=== PATIENT | female | born 2000 | race Caucasian/White ===

== ENCOUNTER → 2018-03-10 | Outpatient (CLI) | payer OTHER ==
[~2018-03-10] MED LIST: CEPH500C24 PO; ONDA4TAB97 PO; OXYC-865 PO; PREN-127 PO
[2018-03-10 11:55] LABS: PLATELET COUNT, AUTOMATED 272 K/uL (150-450)
== END ==
LOC: LAB 10:13
PROVIDERS: ATTEND Obstetrics & Gynecology
DX: Z34.91 Encounter for supervision of normal pregnancy, unspecified, first trimester (principal)
CPT/HCPCS: 36415; 81001; 85025; 86592; 86703; 86762; 86787; 86850; 86900; 86901; 87088; 87340

== ENCOUNTER → 2018-03-12 | Outpatient (CLI) | payer OTHER ==
[~2018-03-12] MED LIST changes: +RHO(150015 IM
== END ==
LOC: LAB 12:20
PROVIDERS: ATTEND Obstetrics & Gynecology
DX: O20.0 Threatened abortion (principal)
CPT/HCPCS: 36415; 84702

== ENCOUNTER → 2018-03-14 | Outpatient (CLI) | payer OTHER | LOC: LAB 12:04 | PROVIDERS: ATTEND Obstetrics & Gynecology | DX: O20.0 Threatened abortion (principal) | CPT/HCPCS: 36415; 84702 ==

== ENCOUNTER → 2018-03-26 | Outpatient (CLI) | payer OTHER | LOC: LAB 09:47 | PROVIDERS: ATTEND Obstetrics & Gynecology | DX: O03.9 Complete or unspecified spontaneous abortion without complication (principal) | CPT/HCPCS: 36415; 84702 ==

== ENCOUNTER → 2018-04-11 | Outpatient (CLI) | payer OTHER ==
[~2018-04-11] MED LIST changes: +ONDA8TAB91 PO
[2018-04-11 11:44] LABS: PLATELET COUNT, AUTOMATED 263 K/uL (150-450)
== END ==
LOC: LAB 11:25
PROVIDERS: ATTEND Nurse Practitioner Primary Care
DX: R11.2 Nausea with vomiting, unspecified (principal)
CPT/HCPCS: 36415; 82040; 82247; 82310; 82374; 82435; 82565; 82947; 83516; 84075; 84132; 84155; 84295; 84450; 84460; 84520; 84702; 85025

== ENCOUNTER → 2018-05-01 | Outpatient (REF) ==
[2018-05-01 11:48] LABS: LDL CHOLESTEROL 106 mg/dl
== END ==
DX: Z02.9 Encounter for administrative examinations, unspecified (principal)

== ENCOUNTER 2018-07-10 11:16 | Emergency (ER) | payer OTHER ==
--- NOTE | 2018-07-10 12:07 | ER Report ---
History and Physical Time Seen By MD: 11:56 Hx. of Stated Complaint: pt states has a lot of anxiety and aches and pain. Had a miscarriage a in Feb , had a suicide attempt sometime later. Denies suicidal ideation at this time HPI/ROS CHIEF COMPLAINT: Anxiety HISTORY OF PRESENT ILLNESS: 18-year-old female patient presents to emergency room with complaint of anxiety. Patient states that she has been having a hard time with anxiety for the past several months. She states that really this is started after she had a miscarriage. Patient states that she is not sleeping well, she's not eating well, she is having hard time focusing at work. She states she is struggling with getting things done at home. She states that she has an episode where she was suicidal and attempted to drown herself in the bathtub. She states that was unsuccessful. She states that she has not talked with this with her until today. She also talked with her mother about this today who recommended she come in for evaluation. Patient states that she is not suicidal at this time. Patient states that she has been tearful. She states that she struggles with discussing how she's feeling with other people, she does not want to be the center of attention. She states that she has this back and abdominal pain that starts in the back and radiates around to her stomach. She states this only occurs when she is having some anxiety. REVIEW OF SYSTEMS: Respiratory: No cough, no dyspnea. Cardiovascular: No chest pain, no palpitations. Gastrointestinal: As noted above Musculoskeletal: No back pain. Allergies: Coded Allergies: No Known Drug Allergies (Unverified , 07/10/18) Home Meds Active Scripts Hydroxyzine Hcl (HYDROXYZINE HCL) 25 Mg Tablet, 25 MG PO Q6H PRN for ANXIETY, #30 TAB Prov:KALI JOHNSON [facility] 07/10/18 Sertraline Hcl (ZOLOFT) 50 Mg Tablet, 1 TAB PO QDAY, #30 TAB Prov:KALI JOHNSON [facility] 07/10/18 Reported Medications Vits W-Ca,Fe,Fa(<1MG) ( VITAMINS) 1 Each Tablet, 1 EACH PO DAILY, TAB 03/10/18 Discontinued Scripts Ondansetron Hcl (ZOFRAN) 8 Mg Tablet, 1 TAB PO Q12H PRN for NAUSEA/VOMITING, #8 TAB 0 Refills Prov:BRENDA CUELLAR DNP, SERVICE ASSISTANT-BC 04/11/18 Past Medical/Surgical History Patient denies any pertinent medical or surgical history. Reviewed Nurses Notes: Yes Smoking Status: Never Smoker Hx Substance Use Disorder: No Hx Alcohol Use: No Constitutional Vital Sign - Last 24 Hours 07/10/18 07/10/18 11:21 14:30 Temp 98.4 Pulse 92 Resp 20 B/P (MAP) 136/88 101/66 (78) Pulse Ox 93 O2 Delivery Room Air Physical Exam General Appearance: The patient is alert, has no immediate need for airway protection and no current signs of toxicity. Respiratory: Chest is non tender, lungs are clear to auscultation. Cardiac: regular rate and rhythm Gastrointestinal: Abdomen is soft and non tender, no masses, bowel sounds normal. Musculoskeletal: Neck: Neck is supple and non tender. Extremities have full range of motion and are non tender. Skin: No rashes or lesions. Psych: Patient is alert and oriented 4, she is able to maintain eye contact. Patient is tearful throughout interview. DIFFERENTIAL DIAGNOSIS: After history and physical exam differential diagnosis was considered for depression, anxiety. Medical Decision Making Data Points Result Diagram: 07/10/18 1342 07/10/18 1255 Laboratory Hematology Test 07/10/18 11:38 07/10/18 12:55 07/10/18 13:42 Urine Color Yellow Urine Clarity Slightly-cloudy Urine pH 7.0 pH (4.8-9.5) Urine Specific [place] 1.010 Urine Protein Negative mg/dL (NEGATIVE) Urine Glucose (UA) Negative mg/dL (NEGATIVE) Urine Ketones Negative mg/dL (NEGATIVE) Urine Blood Negative (NEGATIVE) Urine Nitrite Negative (NEGATIVE) Urine Bilirubin Negative (NEGATIVE) Urine Urobilinogen Negative mg/dL (0.2-1.9) Urine Leukocyte Esterase Negative (NEGATIVE) Urine RBC None /HPF (0-2/HPF) Urine WBC <1 /HPF (0-5/HPF) Urine Squamous Epithelial Cells Many /LPF (</=FEW) Urine Bacteria Negative /HPF (NONE-FEW) Urine Mucus None /HPF (NONE-FEW) Urine HCG, Qualitative Negative (NEGATIVE) Urine Opiates Screen Negative Urine Barbiturates Screen Negative Ur Tricyclic Antidepressants Screen Negative Urine Phencyclidine Screen Negative Urine Amphetamines Screen Negative Urine Benzodiazepines Screen Negative Urine Cocaine Screen Negative Urine Cannabinoids Screen Negative Sodium Level 140 mmol/L (137-145) Potassium Level 3.7 mmol/L (3.5-5.0) Chloride Level 105 mmol/L (98-107) Carbon Dioxide Level 22 mmol/L (22-31) Blood Urea Nitrogen 8 mg/dl (7-18) Creatinine 0.60 mg/dl (0.52-1.04) Glomerular Filtration Rate Calc > 60.0 Random Glucose 81 mg/dl (75-110) Calcium Level 9.8 mg/dl (8.4-10.2) Magnesium Level 2.0 mg/dl (1.7-2.2) Total Bilirubin 0.7 mg/dl (0.2-1.3) Aspartate Amino Transf (AST/SGOT) 23 U/L (0-35) Alanine Aminotransferase (ALT/SGPT) 24 U/L (0-56) Alkaline Phosphatase 72 U/L (0-126) Total Protein 8.0 g/dl (6.3-8.2) Albumin 5.0 g/dl (3.5-5.0) Thyroid Stimulating Hormone (TSH) 2.53 uIU/ml (0.46-4.68) Salicylates Level < 10 mg/L Salicylate Last Dose Date Unk Acetaminophen Level < 10 ug/ml Serum Alcohol < 10 mg/dl Red Blood Count 5.40 M/uL (4.17-5.56) Mean Corpuscular Volume 89.5 fL (80.0-96.0) Mean Corpuscular Hemoglobin 31.3 pg (26.0-33.0) Mean Corpuscular Hemoglobin Concent 34.9 g/dL (32.0-36.0) Red Cell Distribution Width 12.5 % (11.5-14.5) Mean Platelet Volume 8.1 fL (7.2-11.1) Neutrophils (%) (Auto) 68.3 % (39.4-72.5) Lymphocytes (%) (Auto) 24.7 % (17.6-49.6) Monocytes (%) (Auto) 5.7 % (4.1-12.4) Eosinophils (%) (Auto) 0.6 % (0.4-6.7) Basophils (%) (Auto) 0.7 % (0.3-1.4) Nucleated RBC Relative Count (auto) 0.1 /100WBC Neutrophils # (Auto) 6.2 K/uL (2.0-7.4) Lymphocytes # (Auto) 2.2 K/uL (1.3-3.6) Monocytes # (Auto) 0.5 K/uL (0.3-1.0) Eosinophils # (Auto) 0.1 K/uL (0.0-0.5) Basophils # (Auto) 0.1 K/uL (0.0-0.1) Nucleated RBC Absolute Count (auto) 0.01 K/uL Chemistry Test 07/10/18 11:38 07/10/18 12:55 07/10/18 13:42 Urine Color Yellow Urine Clarity Slightly-cloudy Urine pH 7.0 pH (4.8-9.5) Urine Specific [place] 1.010 Urine Protein Negative mg/dL (NEGATIVE) Urine Glucose (UA) Negative mg/dL (NEGATIVE) Urine Ketones Negative mg/dL (NEGATIVE) Urine Blood Negative (NEGATIVE) Urine Nitrite Negative (NEGATIVE) Urine Bilirubin Negative (NEGATIVE) Urine Urobilinogen Negative mg/dL (0.2-1.9) Urine Leukocyte Esterase Negative (NEGATIVE) Urine RBC None /HPF (0-2/HPF) Urine WBC <1 /HPF (0-5/HPF) Urine Squamous Epithelial Cells Many /LPF (</=FEW) Urine Bacteria Negative /HPF (NONE-FEW) Urine Mucus None /HPF (NONE-FEW) Urine HCG, Qualitative Negative (NEGATIVE) Urine Opiates Screen Negative Urine Barbiturates Screen Negative Ur Tricyclic Antidepressants Screen Negative Urine Phencyclidine Screen Negative Urine Amphetamines Screen Negative Urine Benzodiazepines Screen Negative Urine Cocaine Screen Negative Urine Cannabinoids Screen Negative Glomerular Filtration Rate Calc > 60.0 Calcium Level 9.8 mg/dl (8.4-10.2) Magnesium Level 2.0 mg/dl (1.7-2.2) Total Bilirubin 0.7 mg/dl (0.2-1.3) Aspartate Amino Transf (AST/SGOT) 23 U/L (0-35) Alanine Aminotransferase (ALT/SGPT) 24 U/L (0-56) Alkaline Phosphatase 72 U/L (0-126) Total Protein 8.0 g/dl (6.3-8.2) Albumin 5.0 g/dl (3.5-5.0) Thyroid Stimulating Hormone (TSH) 2.53 uIU/ml (0.46-4.68) Salicylates Level < 10 mg/L Salicylate Last Dose Date Unk Acetaminophen Level < 10 ug/ml Serum Alcohol < 10 mg/dl White Blood Count 9.0 k/uL (4.5-11.0) Red Blood Count 5.40 M/uL (4.17-5.56) Hemoglobin 16.9 g/dL (12.0-16.0) Hematocrit 48.4 % (34.0-47.0) Mean Corpuscular Volume 89.5 fL (80.0-96.0) Mean Corpuscular Hemoglobin 31.3 pg (26.0-33.0) Mean Corpuscular Hemoglobin Concent 34.9 g/dL (32.0-36.0) Red Cell Distribution Width 12.5 % (11.5-14.5) Platelet Count 248 K/uL (150-450) Mean Platelet Volume 8.1 fL (7.2-11.1) Neutrophils (%) (Auto) 68.3 % (39.4-72.5) Lymphocytes (%) (Auto) 24.7 % (17.6-49.6) Monocytes (%) (Auto) 5.7 % (4.1-12.4) Eosinophils (%) (Auto) 0.6 % (0.4-6.7) Basophils (%) (Auto) 0.7 % (0.3-1.4) Nucleated RBC Relative Count (auto) 0.1 /100WBC Neutrophils # (Auto) 6.2 K/uL (2.0-7.4) Lymphocytes # (Auto) 2.2 K/uL (1.3-3.6) Monocytes # (Auto) 0.5 K/uL (0.3-1.0) Eosinophils # (Auto) 0.1 K/uL (0.0-0.5) Basophils # (Auto) 0.1 K/uL (0.0-0.1) Nucleated RBC Absolute Count (auto) 0.01 K/uL Toxicology Test 07/10/18 11:38 07/10/18 12:55 Urine Opiates Screen Negative Urine Barbiturates Screen Negative Ur Tricyclic Antidepressants Screen Negative Urine Phencyclidine Screen Negative Urine Amphetamines Screen Negative Urine Benzodiazepines Screen Negative Urine Cocaine Screen Negative Urine Cannabinoids Screen Negative Salicylates Level < 10 mg/L Salicylate Last Dose Date Unk Acetaminophen Level < 10 ug/ml Serum Alcohol < 10 mg/dl Urinalysis Test 07/10/18 11:38 Urine Color Yellow Urine Clarity Slightly-cloudy Urine pH 7.0 pH (4.8-9.5) Urine Specific [place] 1.010 Urine Protein Negative mg/dL (NEGATIVE) Urine Glucose (UA) Negative mg/dL (NEGATIVE) Urine Ketones Negative mg/dL (NEGATIVE) Urine Blood Negative (NEGATIVE) Urine Nitrite Negative (NEGATIVE) Urine Bilirubin Negative (NEGATIVE) Urine Urobilinogen Negative mg/dL (0.2-1.9) Urine Leukocyte Esterase Negative (NEGATIVE) Urine RBC None /HPF (0-2/HPF) Urine WBC <1 /HPF (0-5/HPF) Urine Squamous Epithelial Cells Many /LPF (</=FEW) Urine Bacteria Negative /HPF (NONE-FEW) Urine Mucus None /HPF (NONE-FEW) Urine HCG, Qualitative Negative (NEGATIVE) ED Course/Re-evaluation ED Course She was admitted to examine, history and physical were obtained. Differential diagnoses were considered. On exam lungs are clear, heart is regular, abdomen soft nontender. Patient is tearful during the history. Patient states that she is not currently suicidal. She states she just had those thoughts 2 months ago nothing since then. Lab work for a behavioral health admission were done. Labs were unremarkable. The tech from the behavioral health unit and did come down and he did discuss options of things they could do in behavioral health as well as outpatient options. Patient and her thought about it for Nexium. Time and did ultimately decide that since she is not having suicidal ideation at this time we will go ahead and try outpatient therapy. We discussed options. They're going to contact their clergyman and see if there is any resources through their sabianist. They were given strict instructions to return with any suicidal ideation, any worsening of her condition. I did discuss with her primary care provider, Kaylin, nurse branch controller, who was going to start her on Zoloft, starting at 25 mg daily for a week and then increasing it. I believe that with patient having significant depression that I think going ahead and starting at 50 would be sufficient. We'll go ahead and start her on Zoloft and have her follow-up with her primary care in 2 weeks. I will also have her take hydroxyzine as ne eded for sleep as well as any breakthrough anxiety. Discusses patient and her verbalized understanding and agreement with plan. Decision to Disposition Date: Jul 10, 2018 Decision to Disposition Time: 14:16 Depart Departure Latest Vital Signs Vital Signs Date Time Temp Pulse Resp B/P (MAP) Pulse Ox O2 Delivery O2 Flow Rate FiO2 07/10/18 14:30 101/66 (78) 07/10/18 11:21 98.4 92 20 93 Room Air Impression: Primary Impression: Depression Additional Impression: Anxiety Condition: Stable Disposition: HOME OR SELF-CARE Referrals: ARTURO MATOS MD (PCP) New Scripts Hydroxyzine Hcl (HYDROXYZINE HCL) 25 Mg Tablet 25 MG PO Q6H PRN for ANXIETY, #30 TAB Prov: KALI JOHNSON 07/10/18 Sertraline Hcl (ZOLOFT) 50 Mg Tablet 1 TAB PO QDAY, #30 TAB Prov: KALI JOHNSON 07/10/18 Patient Instructions: Depression (ED) Additional Instructions: Increase exercise. Try and get some sleep. Return to the ER if you are having any suicidal thoughts. Take the medication as prescribed. Follow up with your primary care provider in the next 2 weeks. Problem Qualifiers Primary Impression: Depression Depression Type: major depressive disorder Major depression recurrence: single episode Active/Remission status: currently active Major depression episode severity: moderate Qualified Codes: F32.1 - Major depressive disorder, single episode, moderate KALI JOHNSON Jul 10, 2018 12:07
[2018-07-10 13:49] LABS: PLATELET COUNT, AUTOMATED 248 K/uL (150-450)
[2018-07-10] MEDS ORDERED: HYDR-4225 PO (14:19)
[2018-07-10] MEDS ORDERED: SERT-1 PO (14:19)
[2018-07-10 14:30] VITALS: BP 101/66
== END 2018-07-10 14:45 | disposition home or self-care (01) ==
LOC: ER 11:46
DX: F32.1 Major depressive disorder, single episode, moderate (principal); F41.9 Anxiety disorder, unspecified
CPT/HCPCS: 36415; 80305; 80320; 80329; 81001; 81025; 82040; 82247; 82310; 82374; 82435; 82565; 82947; 83735; 84075; 84132; 84155; 84295; 84443; 84450; 84460; 84520; 85025; 99283

== ENCOUNTER → 2018-07-18 | Outpatient (CLI) | payer OTHER ==
[~2018-07-18] MED LIST changes: +HYDR-4225 PO; +SERT-1 PO
== END ==
LOC: LAB 16:45
PROVIDERS: ATTEND Obstetrics & Gynecology
DX: N92.6 Irregular menstruation, unspecified (principal)
CPT/HCPCS: 36415; 84702

== ENCOUNTER → 2018-08-04 | Outpatient (CLI) | payer OTHER ==
[2018-08-04 10:50] LABS: PLATELET COUNT, AUTOMATED 255 K/uL (150-450)
== END ==
LOC: LAB 09:03
PROVIDERS: ATTEND Obstetrics & Gynecology
DX: Z34.91 Encounter for supervision of normal pregnancy, unspecified, first trimester (principal); R82.79 Other abnormal findings on microbiological examination of urine
CPT/HCPCS: 36415; 81001; 85025; 86592; 86703; 86762; 86850; 86900; 86901; 87088; 87340; 87491; 87591

== ENCOUNTER → 2018-08-07 | Outpatient (CLI) | payer OTHER | LOC: LAB 07:52 | PROVIDERS: ATTEND Student in an Organized Health Care Education/Training Program | DX: Z11.3 Encounter for screening for infections with a predominantly sexual mode of transmission (principal); Z11.8 Encounter for screening for other infectious and parasitic diseases | CPT/HCPCS: 87491; 87591 ==

== ENCOUNTER → 2018-09-12 | Outpatient (CLI) | payer BC | LOC: LAB 09:16 | PROVIDERS: ATTEND Advanced Practice Midwife | DX: M54.9 Dorsalgia, unspecified (principal) | CPT/HCPCS: 87088 ==

== ENCOUNTER → 2018-10-30 | Outpatient (CLI) | payer BC ==
--- NOTE | 2018-10-30 15:49 | RADIOLOGY IMAGING REPORT ---
FACILITY: [facility] PATIENT NAME: Sayra Benavides : 2000 MR: [id number] V: [id number] EXAM DATE: ORDERING PHYSICIAN: JAYESH MALAGON TECHNOLOGIST: Location: [facility] - [place] Patient: Sayra Benavides : 2000 Visit/Account:[id number] Date of Sevice: 10/30/2018 [facility] [place] H[place]: Anatomical COMPARISON: None FINDINGS: Intrauterine gestations: 1 presentation: Variable heart rate: 156 bpm Amniotic fluid volume: KAYLIE 17 cm; Largest amniotic fluid pocket 5 cm Placenta: Anterior. No placenta previa or retroplacental hemorrhage. Uterus: Gravid, otherwise normal Maternal adnexa: Negative Cervix: Closed Gestational Parameters: BPD: 4.7 cm; 20 weeks/ 2 days HC: 17.2 cm; 19 weeks/ 6 days AC: 15.7 cm; 20 weeks/ 6 days FL: 3.2 cm; 20 weeks/ 1 days Average ultrasound age (AUA): 20 weeks/ 2 days Estimated weight (EFW): 351 grams +/- 52 grams. Fetus is in the 83rd percentile based on LMP Anatomic Survey: Intracranial structures, 4-chamber heart, stomach, kidneys, urinary bladder, spine, 3-vessel cord and cord insertion are unremarkable. Two upper and two lower extremities visualized. IMPRESSION: IUP of 20 weeks two days. JOHNNY of 03/17/2019. This is four days ahead of the LMP JOHNNY of 03/21/2019 Report Dictated By: Vaughn Nguyễn MD at 10/30/2018 3:18 PM Report E-Signed By: Vaughn Nguyễn MD at 10/30/2018 3:44 PM WSN:[id number]
== END ==
LOC: US 14:00
PROVIDERS: ATTEND Obstetrics & Gynecology
DX: Z02.9 Encounter for administrative examinations, unspecified (principal)

== ENCOUNTER 2018-12-11 23:25 | Outpatient (CLI) | payer BC ==
[~2018-12-11] VITALS: Ht 165.1 cm; Wt 64.4 kg
[2018-12-11 23:40] VITALS: BP 113/66; Ht 165.1 cm; Wt 64.4 kg
[2018-12-12] MEDS ORDERED: ONDANSETRON 4 MG ODT TABDP SL PRN (00:25)
[2018-12-12] MEDS ORDERED: ACETAMINOPHEN 500 MG TAB PO PRN (00:25)
== END 2018-12-12 01:31 | disposition home or self-care (01) ==
LOC: L&D 23:25 → OB 23:25 → UNDOADMOB 23:25 → UNDODISOB 12-12 01:31 → L&D 12-12 01:31 → EDSTATUS 12-15 14:20
PROVIDERS: ATTEND Obstetrics & Gynecology
DX: O26.892 Other specified pregnancy related conditions, second trimester (principal); Z3A.26 26 weeks gestation of pregnancy; M54.9 Dorsalgia, unspecified
CPT/HCPCS: 81001; 87088; 99213; G0378; G0379

== ENCOUNTER → 2018-12-25 | Outpatient (CLI) | payer BC ==
[2018-12-11 23:40] VITALS: BMI 23.6
[~2018-12-25] MED LIST changes: +DIPH0.5S2 IM
[2018-12-25 12:36] LABS: PLATELET COUNT, AUTOMATED 200 K/uL (150-450)
== END ==
LOC: LAB 11:08
PROVIDERS: ATTEND Obstetrics & Gynecology
DX: Z34.92 Encounter for supervision of normal pregnancy, unspecified, second trimester (principal)
CPT/HCPCS: 36415; 82950; 85025